=== PATIENT | male | born 1995 | race Caucasian/White ===

== ENCOUNTER 2024-05-30 11:28 | Outpatient (RCR) | payer OTHER, SELFPAY ==
--- NOTE | 2024-05-30 12:27 | CTCFLWUP_ITS ---
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 Castillo at [place]. Labs LDH AFP hCG not elevated. Has CT scan 05-10 which is unremarkable. Abdomen soft remaining testicle unremarkable. Chest clear. Assessment stage I right testicular seminoma on watchful waiting following surgery 03/06/2024. Plan. Recommended return to clinic in 6 months for another check preceded by CT scan and blood tests . Electronically signed by: Henry Squires MD, NIRALIR 05/30/2024 12:25 PM
== END 2024-06-16 23:59 | disposition home or self-care (01) ==
LOC: SCTC 11:28
PROVIDERS: PCP Nurse Practitioner Family; Referring Provider Radiology Therapeutic Radiology; Visit Provider Radiology Therapeutic Radiology
DX: C62.11 Malignant neoplasm of descended right testis (principal); Z90.79 Acquired absence of other genital organ(s)
CPT/HCPCS: 99213; G0463

== ENCOUNTER → 2024-12-17 | Outpatient (CLI) | payer OTHER, SELFPAY ==
--- NOTE | 2024-12-17 14:00 | XR_ITS ---
Examination: CT chest with intravenous contrast CT abdomen with intravenous contrast CT pelvis with intravenous contrast 2-D coronal and sagittal reconstructions Time of exam: December 17, 2024 1535 hours Comparison April 18, 2024 INDICATIONS: Diagnosis malignant neoplasm right testis CTDI: vol (mGy) : 5.73 DLP: (mGycm): 426 Technique: Multiple axial images of the chest, abdomen and pelvis with intravenous contrast, 3.0 mm slice thickness. Images obtained post intravenous injection Isovue 370 60 cc. 2-D sagittal and coronal reconstructions. Low dose protocols were performed. One or more of the following dose reduction techniques were used; automated exposure control, adjustment of the mA and/or KV according to patient size, use of iterative reconstruction technique. Findings: No thoracic aortic aneurysm dilatation No pulmonary artery emboli No paratracheal tracheobronchial or bronchopulmonary adenopathy No pneumonia or pulmonary edema or pleural disease No noncalcified pulmonary nodules No interval liver or splenic lesion No gallstones Normal pancreas Normal adrenal glands No hydronephrosis No interval intra-abdominal or pelvic lymphadenopathy Normal appendix Urinary bladder intact Osseous structures intact IMPRESSION: No interval metastatic disease
== END | disposition home or self-care (01) ==
LOC: SCAT 13:43
PROVIDERS: PCP Nurse Practitioner Family; Referring Provider Radiology Therapeutic Radiology; Visit Provider Radiology Therapeutic Radiology
DX: C62.11 Malignant neoplasm of descended right testis (principal)
CPT/HCPCS: 71260; 74177; A4649; Q9967